=== PATIENT | female | born 1970 | race Caucasian/White ===

== ENCOUNTER 2017-05-29 18:10 | Emergency (ER) | payer BC ==
[~2017-05-29] VITALS: Ht 175.3 cm; Wt 73.9 kg
[~2017-05-29 18:10] MED LIST: AMIT10TA6 PO; CLS1 PO; MESA1.2T PO; PRED10TA PO; RMCI IV; TRAZ50TA35 PO
[2017-05-29 18:19] VITALS: TEMP 36.6; Ht 175.3 cm; Wt 73.9 kg
--- NOTE | 2017-05-29 18:44 | EMERGENCY ROOM VISIT NOTE ---
History Report prepared by Madieibrahul: Jessica Sahni Under the Supervision of: Dr. Manolo Hurtado M.D. First contact with patient: 18:32 Chief Complaint: FACIAL PAIN/INJURY Stated Complaint: SWELLING IN FACE History of Present Illness The patient is a 46 year old female who presents to the Emergency Room with complaints of worsening facial pain and swelling for the past 2 days. She rates her discomfort as a 2/10. She denies any itching or recent injury or trauma to her face. She recently saw her PCP and was given an antibiotic, Doxycycline, of which she has taken 3 doses. The patient states her swelling just continues to worsen. She denies any eye or dental pain. The patient also denies any recent fevers, cough or cold symptoms, chest pain, shortness of breath, nausea, vomiting or diarrhea. She does have a history of Crohn's Disease and is on Remicade. Source of History: patient Onset: 2 days [employer] Position: head (face) Symptom Intensity: 2/10 Timing: worsening Associated Symptoms: No fevers, No cough (cough or cold symptoms), No chest pain, No SOB, No nausea, No vomiting, No diarrhea Review of Systems See HPI for pertinent positives & negatives. A total of 10 systems reviewed and were otherwise negative. Past Medical & Surgical Medical Problems: (1) Carpal Tunnel Syndrome (2) Crohns disease Surgical Problems: (1) History of appendectomy (2) History of cholecystectomy Old medical records were reviewed. Nurse's notes were reviewed and I agree with. Family History Cancer Social History Smoking Status: Former Smoker Alcohol Use: none Drug Use: none Marital Status: Housing Status: lives with significant other Occupation Status: employed Current/Historical Medications Scheduled Amoxicillin & Pot Clavulanate (Augmentin 875-125 mg), 875 MG PO BID Doxycycline Hyclate (Vibramycin), 100 MG PO BID Trazodone Hcl (Trazodone), 50 MG PO HS Scheduled PRN Acyclovir (Acyclovir), 200 MG PO 5XD PRN for prn Allergies Coded Allergies: Sulfa Antibiotics (Verified Allergy, Unknown, ., 05/29/17) Physical Exam Vital Signs Date Time Temp Pulse Resp B/P (MAP) Pulse Ox O2 Delivery O2 Flow Rate FiO2 05/29/17 22:14 81 18 132/81 97 Room Air 05/29/17 20:32 90 18 144/100 98 Room Air 05/29/17 18:19 36.6 105 18 133/94 98 Room Air Physical Exam General: The patient is a non-ill appearing middle aged female. Well developed, well nourished in no acute distress, breathing comfortably on room air. Normal speech HEENT: Normal cephalic atraumatic. Pupils are equal round and reactive to light. Extraocular movements are intact. Moderate induration along left cheek. Tender to palpation, no vesicles or fluctuance. No drainage, mild redness under left eye, no proptosis, no scleral injection. Oropharynx is pink with moist mucous membranes. No swelling of the mouth lips or tongue. Poor dentition, no abscess or dental tenderness. Neck: Supple with a midline trachea. No meningeal signs or stiffness, no JVD or bruits. No Stridor. Chest: Clear to auscultation bilaterally. No wheezes or rhonchi. No increased work of breathing. Heart: regular rate and rhythm. Abdomen: Soft nontender, nondistended without rebound guarding or rigidity. Extremities: No cyanosis clubbing or edema. No calf tenderness or assymetry Spine/Back. Non tender to palpation. No CVA tenderness Skin: Good turgor without rashes. Neurologic exam: Cranial nerves two through 12 are intact. Motor and sensation are intact and symmetrical throughout. Medical Decision & Procedures ER Provider Diagnostic Interpretation: Radiology results as stated below per my review and radiologist interpretation: CT FACIAL-MAXILLOFACIAL WITH CT DOSE: 621.67 mGy.cm CLINICAL HISTORY: Left-sided facial swelling TECHNIQUE: Helical images were acquired in transverse plane. The patient was scanned following administration 1 16 cc of Optiray 320. A dose lowering technique was utilized adhering to the principles of ALARA. COMPARISON STUDY: None. FINDINGS: There is a left maxillary region skin edema, and subcutaneous edema. There are no fluid collections to indicate an abscess. No mucosal space masses are visualized. There is no evidence of airway compromise. An enhancing nodule within the left parotid gland, likely represents an intraparotid lymph node. There are prominent bilateral cervical lymph nodes, likely reactive. No orbital masses are visualized. There is no evidence of acute sinusitis. IMPRESSION: 1. Left maxillary region skin and subcutaneous edema, consistent with a cellulitis 2. No evidence of abscess 3. Prominent cervical lymph nodes, likely reactive Electronically signed by: Finesse Ng M.D. 05/29/2017 8:32 PM Laboratory Results 05/29/17 19:00 Red Blood Count 4.05, Mean Corpuscular Volume 90.9, Mean Corpuscular Hemoglobin 31.4, Mean Corpuscular Hemoglobin Concent 34.5, Mean Platelet Volume 8.7, Neutrophils (%) (Auto) 61.8, Lymphocytes (%) (Auto) 31.9, Monocytes (%) (Auto) 3.6, Eosinophils (%) (Auto) 2.0, Basophils (%) (Auto) 0.5, Neutrophils # (Auto) 3.81, Lymphocytes # (Auto) 1.96, Monocytes # (Auto) 0.22, Eosinophils # (Auto) 0.12, Basophils # (Auto) 0.03 05/29/17 19:00 Test 05/29/17 19:00 05/29/17 19:06 White Blood Count 6.15 K/uL (4.8-10.8) Red Blood Count 4.05 M/uL (4.2-5.4) Hemoglobin 12.7 g/dL (12.0-16.0) Hematocrit 36.8 % (37-47) Mean Corpuscular Volume 90.9 fL (80-100) Mean Corpuscular Hemoglobin 31.4 pg (25-34) Mean Corpuscular Hemoglobin Concent 34.5 g/dl (32-36) Platelet Count 235 K/uL (130-400) Mean Platelet Volume 8.7 fL (7.4-10.4) Neutrophils (%) (Auto) 61.8 % Lymphocytes (%) (Auto) 31.9 % Monocytes (%) (Auto) 3.6 % Eosinophils (%) (Auto) 2.0 % Basophils (%) (Auto) 0.5 % Neutrophils # (Auto) 3.81 K/uL (1.4-6.5) Lymphocytes # (Auto) 1.96 K/uL (1.2-3.4) Monocytes # (Auto) 0.22 K/uL (0.11-0.59) Eosinophils # (Auto) 0.12 K/uL (0-0.5) Basophils # (Auto) 0.03 K/uL (0-0.2) RDW Standard Deviation 44.4 fL (36.4-46.3) RDW Coefficient of Variation 13.4 % (11.5-14.5) Immature Granulocyte % (Auto) 0.2 % Immature Granulocyte # (Auto) 0.01 K/uL (0.00-0.02) Est Creatinine Clear Calc Drug Dose 74.3 ml/min Estimated GFR () 78.8 Estimated GFR (Non- 68.0 BUN/Creatinine Ratio 10.5 (10-20) Calcium Level 9.1 mg/dl (8.5-10.1) Human Chorionic Gonadotropin, Qual NEG (NEG) Bedside Hemoglobin 13.3 g/dl (12.0-16.0) Bedside Hematocrit 39 % (37-47) Bedside Sodium 139 mEq/L (135-144) Bedside Potassium 3.7 mEq/L (3.3-5.0) Bedside Chloride 103 mEq/L (101-112) Bedside Total CO2 24 mEq/l (24-31) Anion Gap 17.0 mmol/L (16-25) Bedside Blood Urea Nitrogen 11 mg/dl (7-18) Bedside Creatinine 0.8 mg/dl (0.6-1.3) Bedside Glucose (other) 139 mg/dl (70-99) Bedside Ionized Calcium (Dmitry) 1.21 mmol/l (1.12-1.32) Laboratory studies as stated above per my review. Medications Administered Medications (Trade) Dose Ordered Sig/Rubin Route Start Time Stop Time Status Last Admin Dose Admin Sodium Chloride 1,000 ml @ 999 mls/hr Q1H1M STAT IV 05/29/17 18:48 05/29/17 19:48 DC 05/29/17 19:37 999 MLS/HR Sodium Chloride 1,000 ml @ 150 mls/hr Q6H40M ONCE IV 05/29/17 18:48 05/29/17 22:57 DC 05/29/17 19:37 150 MLS/HR Ampicillin Sodium/ Sulbactam Sodium 3000 mg/Sodium Chloride 108 ml @ 200 mls/hr NOW STAT IV 05/29/17 18:48 05/29/17 19:20 DC 05/29/17 19:37 200 MLS/HR Procedure Slit Lamp Examination Indication: Evaluation for corneal lesion The left eye was prepped with topical proparacaine. Slit lamp examination was performed in the standard fashion. Cornea appeared normal and non-injected. Anterior chamber normal. Scleral injection absent. No discharge present. Fluorescein examination performed and revealed no dendritic lesions and no corneal abnormalities. No foreign bodies noted. Negative Luís sign. The patient tolerated the procedure well without complication. ED Course 1840: Past medical records reviewed. The patient was evaluated in room B2, and a complete history and physical examination were performed. 1847: Ampicillin Sodium/Sulbactam Sodium 3000 mg/NSS 108 ml @ 200 mls/hr IV, NSS 1000 ml @ 150 mls/hr IV, NSS 1000 ml @ 999 mls/hr IV. 2139: I reevaluated the patient. She is resting comfortably. 2229: I reevaluated the patient. She is feeling better. I discussed her results and discharge instructions and she verbalized complete understanding and agreement. Medical Decision The differential diagnoses considered include abscess, infection and dental abnormality. This patient comes in as described above. She was placed in room B2. She has some swelling of the left cheek that's been getting worse. She's been on doxycycline had about 3 dosages. She has been asymptomatic otherwise. She's had no vesicles or trauma. She has no ocular pain. She has no discharge. She has poor dentition but no obvious abscess that IV access established blood work was obtained and gave her Unasyn 3 g IV. She's no white count or fever. She has no acute electrolyte or metabolic abnormality, CAT scan of her face shows cellulitis but no drainable abscess. I stained the left eye there are no dendritic lesions or any corneal abnormalities. I will have her continue doxycycline but amount and also added Augmentin. She is to use warm compresses rest and return if: increasing pain or swelling, fever chills, worsening symptoms, any new problems concerns. Medication Reconcilliation Current Medication List: was personally reviewed by me Blood Pressure Screening Patient's blood pressure: Elevated blood pressure Blood pressure disposition: Elevated BP felt to be situational Impression Primary Impression: Facial cellulitis Scribe Attestation The scribe's documentation has been prepared under my direction and personally reviewed by me in its entirety. I confirm that the note above accurately reflects all work, treatment, procedures, and medical decision making performed by me. Departure Information Dispostion Home / Self-Care Prescriptions Amoxicillin & Pot Clavulanate (Augmentin 875-125 mg) 1 Tab Tab 875 MG PO BID for 10 Days, #20 TAB Prov: Manolo Hurtado M.D. 05/29/17 Referrals No Doctor, Assigned (PCP) Patient Instructions My [facility] Additional Instructions Rest. Drink plenty of fluids. Return if: Increasing pain or swelling, redness or warmth, any new problems or concerns. Continue to use your doxycycline but also add Augmentin 875 mg twice a day Take with food Follow-up with your doctor in 1-2 days for recheck.
[2017-05-29] MEDS ORDERED: AMPICILLIN/SULBACTAM SOD INJ 3,000 MG in SODIUM CHLORIDE 0.9% 100ML 100 ML IV STA (18:48)
[2017-05-29] MEDS ORDERED: SODIUM CHLORIDE 0.9% 1000ML 1,000 ML IV STA (18:48)
[2017-05-29] MEDS ORDERED: SODIUM CHLORIDE 0.9% 1000ML 1,000 ML IV ONE (18:48)
[2017-05-29] MEDS ORDERED: DOXY100C2 PO (18:49)
[2017-05-29] MEDS ORDERED: ACYC1CAP9 PO (18:49)
[2017-05-29 19:12] LABS: BASO % 0.5 %; BASO ABS # 0.03 K/uL (0-0.2); COMPLETE YES; HEMATOCRIT 36.8 % (37-47); IG% 0.2 %; LYMPH % 31.9 %; LYMPH ABS # 1.96 K/uL (1.2-3.4); MEAN CELL VOLUME 90.9 fL (80-100); MEAN CORPUSCULAR HEMOGLOBIN 31.4 pg (25-34); MEAN CORPUSCULAR HGB CONC 34.5 g/dl (32-36); MEAN PLATELET VOLUME 8.7 fL (7.4-10.4); MONO % 3.6 %; NEUT % 61.8 %; PLATELET COUNT 235 K/uL (130-400); RED BLOOD COUNT 4.05 M/uL (4.2-5.4); WHITE BLOOD COUNT 6.15 K/uL (4.8-10.8)
[2017-05-29 19:18] LABS: ISTAT CREATININE 0.8 mg/dl (0.6-1.3); ISTAT HEMOGLOBIN 13.3 g/dl (12.0-16.0); ISTAT IONIZED CALCIUM 1.21 mmol/l (1.12-1.32)
[2017-05-29] MEDS ORDERED: OPTIRAY 320 IV PRN (19:30)
[2017-05-29 19:31] LABS: BUN/CREATININE RATIO 10.5 (10-20); CALCIUM 9.1 mg/dl (8.5-10.1); POTASSIUM 3.7 mmol/L (3.5-5.1)
[2017-05-29 19:46] LABS: PREG INTERNAL NEGATIVE QC NEG CLEAR BACKGROUND; PREG INTERNAL POSITIVE QC POS CONTROL LINE
--- NOTE | 2017-05-29 20:33 | DIAGNOSTIC IMAGING REPORT ---
CT FACIAL-MAXILLOFACIAL WITH CT DOSE: 621.67 mGy.cm CLINICAL HISTORY: Left-sided facial swelling TECHNIQUE: Helical images were acquired in transverse plane. The patient was scanned following administration 1 16 cc of Optiray 320. A dose lowering technique was utilized adhering to the principles of ALARA. COMPARISON STUDY: None. FINDINGS: There is a left maxillary region skin edema, and subcutaneous edema. There are no fluid collections to indicate an abscess. No mucosal space masses are visualized. There is no evidence of airway compromise. An enhancing nodule within the left parotid gland, likely represents an intraparotid lymph node. There are prominent bilateral cervical lymph nodes, likely reactive. No orbital masses are visualized. There is no evidence of acute sinusitis. IMPRESSION: 1. Left maxillary region skin and subcutaneous edema, consistent with a cellulitis 2. No evidence of abscess 3. Prominent cervical lymph nodes, likely reactive Electronically signed by: Finesse Ng M.D. 05/29/2017 8:32 PM Dictated Date/Time: 05/29/2017 8:27 PM
[2017-05-29 22:14] VITALS: BP 132/81; PULSE 81; O2SAT 97
[2017-05-29] MEDS ORDERED: AMOX875T PO (22:34)
== END 2017-05-29 22:53 | disposition home or self-care (01) ==
LOC: C.EDB 18:15
DX: L03.211 Cellulitis of face (principal); H57.8 Other specified disorders of eye and adnexa; K50.90 Crohn's disease, unspecified, without complications; Z90.49 Acquired absence of other specified parts of digestive tract; Z98.890 Other specified postprocedural states; Z87.891 Personal history of nicotine dependence; Z88.2 Allergy status to sulfonamides; Z80.9 Family history of malignant neoplasm, unspecified